=== PATIENT | male | born 1965 | race Hispanic/Latino ===

== ENCOUNTER 2018-04-22 09:07 | Outpatient (CLI) | payer OTHER ==
[~2018-04-22 09:07] MED LIST: Iopamidol 370 76% 100 ML VIAL ONE
--- NOTE | 2018-04-22 10:57 | RAD ---
PA AND LATERAL CHEST: HISTORY: Malignant neoplasm of ascending colon. COMPARISON: 11/07/2016 FINDINGS: The left-sided Port-A-Cath remains in place. There is continued elevation of the right hemidiaphragm . The heart size is normal. The aorta is tortuous. The lungs are well expanded without focal areas of consolidation, pneumothoraces, or pleural effusions. No acute osseous abnormalities are seen. IMPRESSION: Stable exam. No acute process. POS: BIJU
--- NOTE | 2018-04-22 11:08 | CT ---
CT ABDOMEN AND PELVIS WITH ORAL AND IV CONTRAST: HISTORY: Malignant neoplasm of the ascending colon. Nausea with vomiting, unspecified. COMPARISON: CT abdomen from 11/07/2016. FINDINGS: The lung bases are unremarkable. There is decreased attenuation of the liver, compared to the spleen , consistent with fatty infiltration. No hepatic mass or abnormal biliary ductal dilatation is seen. No calcified gallstones are identified. The spleen, pancreas, adrenal glands, and kidneys are norm al. No free air, free fluid, or lymphadenopathy is seen in the abdomen or pelvis. The prostate is enlarg ed. The small bowel loops are not abnormally dilated. There are postop changes in the transverse co kaylynn/hepatic flexure. There is a low density lesion at the posterior aspect of the right iliac bone, which is stable since 10/11/2015. No suspicious osteolytic or osteoblastic lesions are seen. There are degenerative kendall es in the spine. There are small fat-containing right inguinal hernias present. IMPRESSION: No evidence of metastatic disease. POS: CARMEN
== END 2018-04-22 09:08 | disposition home or self-care (01) ==
LOC: CT 09:07
PROVIDERS: ATTEND Internal Medicine Medical Oncology
DX: C18.2 Malignant neoplasm of ascending colon (principal)
CPT/HCPCS: 71046; 74177